=== PATIENT | female | born 1985 | race Caucasian/White ===

== ENCOUNTER 2016-12-28 18:00 | Inpatient (IN) | payer OTHER ==
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
--- NOTE | ~2016-12-28 | PN ---
Unit #: [id number] #: [id number] Patient: BREANNA VILLEGAS [id number] [facility] [address] [place] [address] [id number] MR#: [id number] NAME: BREANNA VILLEGAS ROOM: P202 Age: 31 Sex: F Admission Date: 12/28/2016 : 1985 Attending Physician: Jose Lerma M.D. Admitting Physician: Jose Lerma M.D. Primary Care Physician: Primary Care Physician Adelia YOUNG PROGRESS NOTES EXAM 01/01/2017 DISCUSSION Breanna continues to be isolative from peers and staff. She is sleeping heavily this morning and awakens only long enough to reaffirm that she has had suicidal thoughts but her detox is improving. She appeared alert and fully oriented with no evidence of psychosis. ASSESSMENT Opiate dependence. Amphetamine abuse. Major depression. PLAN Continue current treatment plan. Dictated by... Jose Lerma M.D. [facility]/to TD: 01/02/2017 15:35 JOB #: [id number] [facility] PROGRESS NOTES Page 1 of 1 X Jose Lerma MD X PROGRESS NOTE
--- NOTE | ~2016-12-28 | DS ---
Unit #: [id number] #: [id number] Patient: BREANNA VILLEGAS [id number] [facility] [address] [place] [address] [id number] I MR#: [id number] NAME: BREANNA VILELGAS. ROOM: [facility] Age: 31 Sex: F Admission Date: 12/28/2016 : 1985 Discharge Date: 01/03/2017 Attending Physician: Jose Lerma M.D. Primary Care Physician: Primary Care Physician No DISCHARGE SUMMARY REASON FOR ADMISSION Kamila is a 31-year-old woman, who reports she has been using opioids and amphetamines to excess. She thought everyone will be better off without her and had some suicidal ideation. She was admitted for assessment. DIAGNOSTIC STUDIES LABORATORY RESULTS: Please see hospital chart. Beta HCG was negative of note. HOSPITAL COURSE The patient was admitted and placed on the opioid detox protocol and suicide precautions. Trazodone was provided for insomnia and Bactrim was continued for a urinary tract infection. The patient had no further suicidal ideation during the assessment and her psychotic symptoms from amphetamine abuse appeared to clear. On the date of discharge, she had shown improvement and was able to contract for safety in the outpatient setting. DISCHARGE DIAGNOSES AXIS I: Opioid dependence with withdrawal, uncomplicated; opioid-induced mood disorder; amphetamine abuse. AXIS II: No diagnosis. AXIS III: Urinary tract infection, history of hepatitis C, history of hypertension. AXIS IV: AXIS V: DISCHARGE INSTRUCTIONS The patient will follow up with CD-IOP at this facility and with her primary care physician. DISCHARGE MEDICATIONS None. CONDITION AT DISCHARGE Improved. PROGNOSIS Fair to good. DIET AND ACTIVITY Ad claire. Unit #: [id number] #: [id number] Patient: BREANNA VILLEGAS Dictated by... Dionne LeeH/barron TD: 01/05/2017 01:05 JOB #: [id number] DISCHARGE SUMMARY Page 1 of 1 X Jose Lerma MD DISCHARGE SUMMARY
--- NOTE | ~2016-12-28 | PN ---
Unit #: [id number] #: [id number] Patient: MARIBELL VILLEGAS [id number] [facility] [address] [place] [address] [id number] MR#: [id number] NAME: MARIBELL VILLEGAS ROOM: P202 Age: 31 Sex: F Admission Date: 12/28/2016 : 1985 Attending Physician: Jose Lerma M.D. Admitting Physician: Jose Lerma M.D. Primary Care Physician: Primary Care Physician Adelia HENDERSON NOTES DATE OF SERVICE 12/31/2016 DISCUSSION Maribell continues to be isolative from the milieu and has attended few groups and activities. Her mood is anxious and irritable with a congruent affect. She is alert and fully oriented. Memory and concentration are fair. Thought processes are logical with no active psychosis. She does continue to report some suicidal ideation but contracts for safety in the hospital. Laboratory informed us of the ongoing presence of a UTI and so her antibiotic has been changed by our medical imaging specialist. ASSESSMENT Opiate dependence. Amphetamine abuse. Mood disorder NOS. PLAN We will continue with detox protocol and current treatment plan. Dictated by... Jose Lerma M.D. [facility]/nannette TD: 01/02/2017 10:23 JOB #: [id number] [facility] HENDERSON NOTES Page 1 of 1 X Jose Lerma MD PROGRESS NOTE
--- NOTE | ~2016-12-28 | PN ---
Unit #: [id number] #: [id number] Patient: MARIBELL VILLEGAS [id number] [facility] [address] [place] [address] [id number] MR#: [id number] NAME: MARIBELL VILLEGAS ROOM: P202 Age: 31 Sex: F Admission Date: 12/28/2016 : 1985 Attending Physician: Jose Lerma M.D. Admitting Physician: Jose Lerma M.D. Primary Care Physician: Primary Care Physician Adelia YOUNG PROGRESS NOTES DATE OF SERVICE: 12/30/2016 DISCUSSION Maribell continues to have active opioid detox symptoms today. She is depressed and irritable with a flat affect. She is alert and fully oriented. Her memory and concentration are fair. Her thought processes are logical and she continues to be unable to contract for safety outside of the hospital with fleeting suicidal ideation. ASSESSMENT Opioid dependence; depressive disorder, not otherwise specified. PLAN Continue current treatment plan and precautions. Dictated by... Dionne Lee/barron TD: 12/31/2016 18:50 JOB #: [id number] [facility] PROGRESS NOTES Page 1 of 1 X Jose Lerma MD PROGRESS NOTE
--- NOTE | ~2016-12-28 | HP ---
Unit #: [id number] #: [id number] Patient: MARIBELL VILLEGAS [id number] [place] [address] [id number] MR#: [id number] NAME: MARIBELL VILLEGAS. ROOM: P202 Age: 31 Sex: F Admission Date: 12/28/2016 : 1985 Attending Physician: Jose Lrema M.D. Admitting Physician: Jose Lerma M.D. Primary Care Physician: Primary Care Physician No HISTORY AND PHYSICAL HISTORY OF PRESENT ILLNESS Maribell is a 31 year old admitted to [address] [place] [address] because of her polysubstance abuse which includes IV heroin and IV methamphetamine. PAST MEDICAL HISTORY 1. Long history of illicit substance abuse to include IV drugs. 2. Hepatitis C. PAST SURGICAL HISTORY 1. Appendectomy. 2. x4. ALLERGIES No known drug allergies. SOCIAL HISTORY Smokes less than 1/2 pack per day. Denies alcohol. Admits to a long history of illicit substance abuse to include IV drugs. FAMILY HISTORY Medically noncontributory. REVIEW OF SYSTEMS CONSTITUTIONAL: No fever or chills. HEENT: Denies any sore throat, ear pain or runny nose. CARDIOVASCULAR: Denies chest pain, irregular heart rhythm or palpitations. CHEST: Denies shortness of breath or cough. No hemoptysis. GASTROINTESTINAL: Denies nausea, vomiting, diarrhea or chronic constipation. ENDOCRINE: Denies history of increased thirst or urination. No recent significant weight loss or gain. GENITOURINARY: Denies dysuria, frequency, or hematuria. SKIN: Denies any rashes. HEMATOLOGIC: Denies history of increased bleeding or bruising. MUSCULOSKELETAL: Denies any hot, swollen joints. No generalized muscle pain. NEUROLOGIC: Denies problems with vision or speech. No frequent, severe headaches. No numbness, tingling or weakness in any extremities. Denies loss of bladder or bowel control. CURRENT MEDICATIONS Detox protocol. Unit #: [id number] #: [id number] Patient: MARIBELL VILLEGAS PHYSICAL EXAMINATION GENERAL: Alert, well-nourished, in no apparent distress. VITAL SIGNS: Blood pressure 100/70, heart rate 70, respirations 16, temperature 98.6. WEIGHT: 146. HEIGHT: 5 feet 2 inches. SKIN: Warm and dry without rash or lesion. HEENT: Normocephalic. TMs not viewed. Oral and nasal passages clear. Conjunctivae clear. PERRLA. EOMs intact. NECK: Supple without lymphadenopathy or thyromegaly. HEART: Regular rate and rhythm without murmur. LUNGS: Clear. ABDOMEN: Soft, nontender. : Not done. EXTREMITIES: No evidence of cyanosis, clubbing or edema. Moves all without focal deficit. NEUROLOGICAL: Grossly within normal limits. Cranial Nerves: II: Visual leyva are intact. III, IV AND : Extraocular movements are intact. Pupils are equal, round and reactive to light. V: Facial sensation is grossly normal. VII: Facial movements and expression are normal. VIII: Auditory acuity grossly intact. IX, X: Uvula is midline. Phonation is normal. XI: Patient shrugs shoulders and turns head normally. XII: Tongue protrudes in the midline. Sensory and Motor Function: Sensory and motor sensation is grossly normal. Motor: moves all extremities well. Coordination: Gait is normal. Deep Tendon Reflexes: Intact. IMPRESSION Psychiatric admission. RECOMMENDATIONS PSYCHIATRIC: Per psychiatrist. MEDICAL: See no contraindications to participate in facility's activities. MEDICAL PROGNOSIS Good. MEDICAL CONDITION Stable. Dictated by... Bertha Mann PSonuASonu-C. for Dionne Bell/more TD: 12/29/2016 17:38 JOB #: [id number] Unit #: [id number] #: [id number] Patient: MARIBELL VILLEGAS HISTORY AND PHYSICAL Page 1 of 1 X Bertha Mann HISTORY AND PHYSICAL
[~2016-12-28 18:00] MED LIST: BACTRIM DS TABL1 TA2 PO; NEURONTIN; PYRIDIUM PO; ZYPREXA
[2016-12-29 09:31] LABS: BASOPHIL# 0.1 X10e3 (0-0.3); BASOPHIL% 0.8 % (0-2.5); EOSINOPHIL# 0.1 X10e3 (0-0.7); EOSINOPHIL% 1.6 % (0.0-7.0); HEMATOCRIT 39.1 % (35.0-45.0); HEMOGLOBIN 13.1 gm/dL (12.0-16.0); LYMPHOCYTE# 3.5 X10e3 (1.0-3.5); LYMPHOCYTE% 48.9 % (17.0-45.0); MEAN CELL VOLUME 89.9 FL (83-96); MEAN CORPUSCULAR HEMOGLOBIN 30.1 PG (28-34); MEAN CORPUSCULAR HGB CONC 33.4 g/dL (30-36); MEAN PLATELET VOLUME 8.5 FL (6.5-11.5); MONOCYTE# 0.3 X10e3 (0-1.0); MONOCYTE% 4.7 % (3.0-12.0); NEUTROPHIL# 3.2 X10e3 (1.5-7.1); PLATELET COUNT 255 X10e3 (140-420); RED BLOOD COUNT 4.35 X10e (3.90-5.30); RED CELL DISTRIBUTION WIDTH 14.1 % (11.0-15.5); WHITE BLOOD COUNT 7.2 X10e3 (4.0-10.5)
[2016-12-29 10:04] LABS: DIFF IND NO
[2016-12-29 10:08] LABS: THYROID STIMULATING HORMONE 2.08 uIU/ml (0.34-5.60)
[2016-12-29 10:14] LABS: FREE THYROXIN (T4) 1.04 ng/dL (0.58-1.64)
[2016-12-29 10:59] LABS: ALBUMIN SERUM 4.1 g/dL (3.5-5.0); BILIRUBIN,TOTAL 1.2 mg/dL (0.2-2.0); BUN/CREATININE RATIO 14.54; CALCIUM SERUM 9.1 mg/dL (8.4-10.2); CREATININE SERUM 1.1 mg/dL (0.6-1.4); GLOM FILT RATE Estimated 66.9 mL/min (>60); POTASSIUM 4.1 mmol/L (3.5-5.1); PROTEIN TOTAL SERUM 7.4 g/dL (6.0-8.3)
[2016-12-30 10:04] LABS: URINE APPEARANCE CLEAR; URINE BILIRUBIN NEG (NEG); URINE BLOOD NEG (NEG); URINE COLOR YELLOW; URINE GLUCOSE NEG (NEG); URINE KETONE NEG (NEG); URINE LEUKOCYTE ESTERASE TRACE (NEG); URINE NITRATE POS (NEG); URINE PH 5.5 (5-8); URINE PROTEIN NEG (NEG)
[2016-12-30 10:09] LABS: U HYALINE CASTS AUWI 0-2 /[LPF]; URBCS1 AUWI 0-2 /[HPF] (0-2); URINE BACTERIA AUWI 4+ (NEGATIVE); URINE SQUAMOUS EPITHELIAL CELL OCC /[HPF]
[2016-12-30 10:22] LABS: AMPHETAMINE POS (NEG); BARBITURATES NEG (NEG); BENZODIAZEPINES NEG (NEG); COCAINE NEG (NEG); MARIJUANA NEG (NEG); OPIATES NEG (NEG); TRICYCLIC ANTIDEPRESSANTS NEG (NEG); U METHADONE NEG (NEG)
== END 2017-01-03 10:04 | DRG 897 ==
LOC: P2S 20:54
PROVIDERS: Psychiatry & Neurology Psychiatry
DX: F11.23 Opioid dependence with withdrawal (principal); R45.851 Suicidal ideations; N39.0 Urinary tract infection, site not specified; F11.24 Opioid dependence with opioid-induced mood disorder; B19.20 Unspecified viral hepatitis C without hepatic coma; I10 Essential (primary) hypertension; F17.210 Nicotine dependence, cigarettes, uncomplicated; F39 Unspecified mood [affective] disorder
CPT/HCPCS: 80053; 80307; 81003; 84439; 84443; 84703; 85025; 86592